=== PATIENT | female | born 1990 | race African-American/Black ===

== ENCOUNTER 2022-01-23 08:30 | Inpatient (IN) | payer OTHER ==
[2022-01-26 10:06] VITALS: BMI 40.7
[2022-01-30] MEDS ORDERED: CEFAZOLIN 2 GM in DEXTROSE 5%-WATER - 100 ML IVPB ONE ×2 (06:30→14:04)
[2022-01-30] MEDS ORDERED: ROCURONIUM BROMIDE 50 MG/5 ML SYRINGE ONE (10:37)
[2022-01-30] MEDS ORDERED: PROPOFOL 20 ML ONE (10:38)
[2022-01-30] MEDS ORDERED: MIDAZOLAM HCL 2 MG/2 ML SINGLE DOSE VIAL ONE (10:38)
[2022-01-30] MEDS ORDERED: SUCCINYLCHOLINE CHLORIDE 200 MG/10 ML SYRINGE ONE (10:38)
[2022-01-30] MEDS ORDERED: ceFAZolin SODIUM 1 GM VIAL IVPB ONE (11:30)
[2022-01-30] MEDS ORDERED: ceFAZolin SODIUM 1 GM VIAL ONE (11:33)
[2022-01-30] MEDS ORDERED: DEXAMETHASONE SOD PHOSPHATE 4 MG/1 ML VIAL ONE (11:33)
[2022-01-30] MEDS ORDERED: ePHEDrine SULFATE 50 MG/1 ML AMPULE ONE (11:43)
[2022-01-30] MEDS ORDERED: GLYCOPYRROLATE 0.2 MG/1 ML VIAL ONE (12:59)
[2022-01-30] MEDS ORDERED: NEOSTIGMINE METHYLSULFATE 0.5 MG/ML - 10 ML MDV ONE (12:59)
[2022-01-30] MEDS ORDERED: ONDANSETRON 4 MG/2 ML VIAL IVPUSH PRN ×5 (13:23→14:04)
[2022-01-30] MEDS ORDERED: ACETAMINOPHEN 325 MG TABLET (FP) PO PRN ×2 (13:23→14:04)
[2022-01-30] MEDS ORDERED: IBUPROFEN 600 MG TABLET (FP) PO PRN ×2 (13:23→14:04)
[2022-01-30] MEDS ORDERED: BISACODYL 5 MG TABLET.DR (FP) PO PRN ×2 (13:25→14:04)
[2022-01-30] MEDS ORDERED: DOCUSATE SODIUM 100 MG CAPSULE (FP) PO PRN (13:25)
[2022-01-30] MEDS ORDERED: PROMETHAZINE HCL 25 MG/1 ML VIAL IVPUSH PRN ×2 (13:25→14:04)
[2022-01-30] MEDS ORDERED: SIMETHICONE 80 MG TAB.CHEW (FP) PO PRN (13:25)
[2022-01-30] MEDS ORDERED: ACETAMINOPHEN INJECTION 100 ML IVPB ONE (14:39)
[2022-01-30] MEDS ORDERED: HYDROmorphone *PCA* 10MG/50ML DISP.SYRIN PCA SCH (14:45)
[2022-01-30] MEDS ORDERED: ACETAMINOPHEN 1000 MG/100 ML BAG IVPB ONE (14:46)
[2022-01-30] MEDS ORDERED: HYDROmorphone *PCA* 10MG/50ML DISP.SYRIN ONE (14:51)
[2022-01-30] MEDS ORDERED: CEFAZOLIN 1 GM/D5W 1 GM/50 ML BAG IVPB SCH (18:00)
[2022-01-30 19:54] LABS: HEMATOCRIT 32.4 % (32.4-45.2); HEMOGLOBIN 9.7 GM/dL (10.7-15.3); MCHC 29.9 g/dl (32.0-36.0); MEAN CELL VOLUME 63.5 fl (80-96); MEAN PLT VOLUME 8.7 fl (7.5-11.1); PLATELET COUNT 844 10^3/uL (134-434); WHITE BLOOD COUNT 22.8 K/mm3 (4.0-10.0)
[2022-01-30 20:14] LABS: CALCIUM 9.2 mg/dL (8.5-10.1)
[2022-01-30 20:15] LABS: BLOOD UREA NITROGEN 12.8 mg/dL (7-18)
[2022-01-30 20:18] LABS: CREATININE 0.9 mg/dL (0.55-1.3)
[2022-01-30] MEDS: CEFAZOLIN 2 GM in DEXTROSE 5%-WATER - 100 ML IVPB SCH (20:18)
[2022-01-30] MEDS: MELATONIN 5 MG TABLETS PO SCH (21:34)
[2022-01-30] MEDS ORDERED: ALBUTEROL SO4 HFA INHALER IH ONE (23:41)
[2022-01-31] MEDS: CEFAZOLIN 2 GM in DEXTROSE 5%-WATER - 100 ML IVPB SCH (03:52)
[2022-01-31] MEDS ORDERED: oxyCODONE HCL 5 MG TABLET PO PRN ×2 (09:13→09:29)
[2022-01-31] MEDS ORDERED: IBUPROFEN 600 MG TABLET (FP) PO PRN ×2 (09:28→12:12)
[2022-01-31] MEDS ORDERED: ENOXAPARIN NA (PORCINE) 40 MG/0.4 ML DISP.SYRIN SQ SCH (10:00)
[2022-01-31] MEDS ORDERED: ALBUTEROL SO4 HFA INHALER IH SCH (10:00)
[2022-01-31] MEDS ORDERED: MONTELUKAST NA 10 MG TABLET PO SCH ×2 (10:00)
[2022-01-31] MEDS ORDERED: PATIENT'S OWN MEDICATION (NON-FORMULARY) (Cetirizine Hcl [Zyrtec] 10 MG Tablet) PO SCH (10:00)
[2022-01-31] MEDS: LORATADINE 10 MG TABLET PO SCH (10:03)
[2022-01-31] MEDS: SIMETHICONE 80 MG TAB.CHEW (FP) PO PRN ×2 (10:03→19:51)
[2022-01-31] MEDS: oxyCODONE HCL 5 MG TABLET PO PRN ×2 (10:04→19:51)
[2022-01-31] MEDS: DOCUSATE SODIUM 100 MG CAPSULE (FP) PO PRN ×2 (10:04→19:52)
[2022-01-31] MEDS: ENOXAPARIN NA (PORCINE) 40 MG/0.4 ML DISP.SYRIN SQ SCH (10:05)
[2022-01-31] MEDS: ALBUTEROL SO4 HFA INHALER IH SCH (10:05)
[2022-01-31 11:02] LABS: HEMATOCRIT 28.2 % (32.4-45.2); HEMOGLOBIN 8.7 GM/dL (10.7-15.3); MCHC 30.8 g/dl (32.0-36.0); MEAN CELL VOLUME 62.8 fl (80-96); MEAN PLT VOLUME 8.2 fl (7.5-11.1); PLATELET COUNT 729 10^3/uL (134-434); RDW 32.4 % (11.6-15.6); WHITE BLOOD COUNT 16.4 K/mm3 (4.0-10.0)
[2022-01-31 11:07] LABS: MCH 19.3 pg (25.7-33.7)
[2022-01-31 11:29] LABS: BLOOD UREA NITROGEN 9.3 mg/dL (7-18)
[2022-01-31 11:34] LABS: CREATININE 0.7 mg/dL (0.55-1.3)
[2022-01-31] MEDS: ACETAMINOPHEN 325 MG TABLET (FP) PO PRN (13:18)
[2022-01-31] MEDS: MELATONIN 5 MG TABLETS PO SCH (22:24)
[2022-02-01] MEDS: SIMETHICONE 80 MG TAB.CHEW (FP) PO PRN ×2 (05:55→15:43)
[2022-02-01] MEDS: oxyCODONE HCL 5 MG TABLET PO PRN ×2 (05:55→15:43)
[2022-02-01] MEDS: LORATADINE 10 MG TABLET PO SCH (09:15)
[2022-02-01] MEDS: ALBUTEROL SO4 HFA INHALER IH SCH (09:15)
[2022-02-01] MEDS: ENOXAPARIN NA (PORCINE) 40 MG/0.4 ML DISP.SYRIN SQ SCH (09:15)
[2022-02-01 09:39] VITALS: BP 124/64; PULSE 83; TEMP 98.5
[2022-02-01] MEDS: ACETAMINOPHEN 325 MG TABLET (FP) PO PRN (11:18)
[2022-02-01 16:24] LABS: HEMATOCRIT 27.3 % (32.4-45.2); HEMOGLOBIN 8.3 GM/dL (10.7-15.3); MCHC 30.5 g/dl (32.0-36.0); MEAN CELL VOLUME 62.4 fl (80-96); MEAN PLT VOLUME 8.6 fl (7.5-11.1); PLATELET COUNT 714 10^3/uL (134-434); RBC 4.38 M/mm3 (3.60-5.2); RDW 32.7 % (11.6-15.6); WHITE BLOOD COUNT 12.2 K/mm3 (4.0-10.0)
[2022-02-01] MEDS ORDERED: MONTELUKAST NA 10 MG TABLET PO SCH (22:00)
== END 2022-02-01 17:19 | disposition home or self-care (01) | DRG 519 ==
LOC: J2C 01-30 04:26 → J3W 01-30 16:03
PROVIDERS: ADMIT Obstetrics & Gynecology; ATTEND Obstetrics & Gynecology
PROC: 0UB90ZZ Excision of Uterus, Open Approach (ICD-10-PCS; principal; 2022-01-30 09:30)
DX: D25.0 Submucous leiomyoma of uterus (principal); Z68.41 Body mass index [BMI] 40.0-44.9, adult; E66.01 Morbid (severe) obesity due to excess calories; D64.9 Anemia, unspecified
CPT/HCPCS: 36415; 36430; 80048; 81025; 85027; 86850; 86900; 86901; 86922; 88305-TC; 94010; 94760; P9058